=== PATIENT | female | born 1970 | race African-American/Black ===

== ENCOUNTER 2018-05-04 22:29 | Emergency (ER) | payer SELFPAY ==
[~2018-05-04] VITALS: Ht 167.6 cm; Wt 70.0 kg
[2018-05-04 23:09] VITALS: BP 168/94; PULSE 85; RESP 18; TEMP 98.8; O2SAT 98
[2018-05-04] MEDS ORDERED: SODIUM CHLOR 0.9% 1000 ML INJ 1,000 ML IV SCH (23:44)
[2018-05-04] MEDS ORDERED: KETOROLAC TROMETHAMINE 30 MG/ML (IVP) VIAL IVP ONE (23:45)
[2018-05-04] MEDS ORDERED: ONDANSETRON ODT 4 MG TAB PO ONE (23:45)
[2018-05-04] MEDS ORDERED: MORPHINE SULFATE 4 MG/ML INJ IV PUSH ONE (23:45)
[2018-05-04] MEDS ORDERED: SODIUM CHLORIDE 0.9% FLUSH 10 ML FLUSH IV FLUSH PRN (23:45)
[2018-05-04] MEDS ORDERED: DIATRIZOATE MEGLUM/DIATRIZOATE SOD 9 ML CUP ONE ×2 (23:47→23:59)
--- NOTE | 2018-05-04 23:51 | PD ---
HPI Chief Complaint: Abdominal Pain Time Seen by Provider: 23:15 Travel History International Travel<30 days: No Contact w/Intl Traveler<30days: No Traveled to known affect area: No History of Present Illness HPI The patient is a 48-year-old female who presents emergency department for abdominal pain. The patient's abdominal pain started on Thursday and is progressively worsening. The patient's abdominal pain is located right lower quadrant, constant, nonradiating, dull and achy, and associated with mild nausea without any vomiting or constipation. Last bowel movement was earlier today, slightly hard from straining. The patient does note mild burning upon urination when wiping, but denies any vaginal discharge or bleeding. The patient denies any fever, chills, or sweats. She was able to eat earlier today, but does note decreased oral intake over the last several days. She denies any history of abdominal surgeries. Last menstrual cycle was April 26, 2018. She denies . Symptoms are moderate. [facility] Past Medical History Medical History: Denies Significant Hx ?: Unknown Past Surgical History Surgical History: No Previous Surgery Social History Tobacco Use: No Allergies-Medications (Allergen,Severity, Reaction): Coded Allergies: No Known Allergies (Unverified , 05/04/18) Review of Systems Except as stated in HPI: all other systems reviewed are Neg General / Constitutional: No: Fever Cardiovascular: No: Chest Pain or Discomfort Respiratory: No: Shortness of Breath Gastrointestinal: Positive: Nausea, Abdominal Pain, No: Vomiting, Diarrhea Genitourinary: Positive: Dysuria, No: Discharge, Vaginal Bleeding Physical Exam Narrative GENERAL: Awake, alert, pleasant 48-year-old female who appears her stated age and is in no acute respiratory distress. SKIN: Focused skin assessment warm/dry. HEAD: Atraumatic. Normocephalic. Apparent hairpiece in place. EYES: Pupils equal and round. No scleral icterus. No injection or drainage. ENT: No nasal bleeding or discharge. Mucous membranes pink and moist. NECK: Trachea midline. No JVD. CARDIOVASCULAR: Regular rate and rhythm. No murmur appreciated. RESPIRATORY: No accessory muscle use. Clear to auscultation. Breath sounds equal bilaterally. GASTROINTESTINAL: Abdomen soft, tender to palpation right lower quadrant. Negative Almonte's. Positive McBurney's. Positive obturator. No guarding or rigidity. MUSCULOSKELETAL: No obvious deformities. No clubbing. No cyanosis. No edema. NEUROLOGICAL: Awake and alert. No obvious cranial nerve deficits. Motor grossly within normal limits. Normal speech. PSYCHIATRIC: Appropriate mood and affect; insight and judgment normal. Data Data Last Documented VS Vital Signs Date Time Temp Pulse Resp B/P (MAP) Pulse Ox O2 Delivery O2 Flow Rate FiO2 05/05/18 00:20 Room Air 05/04/18 23:09 98.8 85 18 168/94 (118) 98 Orders Orders Complete Blood Count With Diff (05/04/18 23:44) Comprehensive Metabolic Panel (05/04/18 23:44) Lipase (05/04/18 23:44) Urinalysis - C+S If Indicated (05/04/18 23:44) Iv Access Insert/Monitor (05/04/18 23:44) Ecg Monitoring (05/04/18 23:44) Oximetry (05/04/18 23:44) Morphine Inj (Morphine Inj) (05/04/18 23:45) Sodium Chlor 0.9% 1000 Ml Inj (Ns 1000 M (05/04/18 23:44) Sodium Chloride 0.9% Flush (Ns Flush) (05/04/18 23:45) Ketorolac Inj (Toradol Inj) (05/04/18 23:45) Ed Urine Pregnancytest Poc (05/04/18 23:44) Ondansetron Odt (Zofran Odt) (05/04/18 23:45) Diatrizoate Liq ( Gastroyanni Liq) (05/04/18 23:47) Oral Contrast - Adult (05/04/18 23:51) Ct Abd/Pel W Iv Contrast(Rout) (05/05/18 23:44) Diatrizoate Liq ( Gastroyanni Liq) (05/04/18 23:59) Urine Culture (05/05/18 00:20) Ceftriaxone Inj (Rocephin Inj) (05/05/18 01:30) Iohexol 350 Inj (Omnipaque 350 Inj) (05/05/18 02:15) Us Pelvis Comp W Dop Transvag (05/05/18 ) Ed Discharge Order (05/05/18 04:53) Labs Laboratory Tests Test 6/6/18 00:14 05/05/18 00:20 White Blood Count 8.7 TH/MM3 Red Blood Count 3.90 MIL/MM3 Hemoglobin 12.1 GM/DL Hematocrit 34.6 % Mean Corpuscular Volume 88.7 FL Mean Corpuscular Hemoglobin 30.9 PG Mean Corpuscular Hemoglobin Concent 34.9 % Red Cell Distribution Width 16.0 % Platelet Count 218 TH/MM3 Mean Platelet Volume 9.9 FL Neutrophils (%) (Auto) 64.1 % Lymphocytes (%) (Auto) 24.2 % Monocytes (%) (Auto) 9.6 % Eosinophils (%) (Auto) 1.7 % Basophils (%) (Auto) 0.4 % Neutrophils # (Auto) 5.6 TH/MM3 Lymphocytes # (Auto) 2.1 TH/MM3 Monocytes # (Auto) 0.8 TH/MM3 Eosinophils # (Auto) 0.1 TH/MM3 Basophils # (Auto) 0.0 TH/MM3 CBC Comment DIFF FINAL Differential Comment Blood Urea Nitrogen 18 MG/DL Creatinine 1.09 MG/DL Random Glucose 97 MG/DL Total Protein 7.1 GM/DL Albumin 3.2 GM/DL Calcium Level 9.3 MG/DL Alkaline Phosphatase 64 U/L Aspartate Amino Transf (AST/SGOT) 11 U/L Alanine Aminotransferase (ALT/SGPT) 18 U/L Total Bilirubin 0.8 MG/DL Sodium Level 140 MEQ/L Potassium Level 3.7 MEQ/L Chloride Level 108 MEQ/L Carbon Dioxide Level 23.7 MEQ/L Anion Gap 8 MEQ/L Estimat Glomerular Filtration Rate 65 ML/MIN Lipase 132 U/L Urine Color YELLOW Urine Turbidity CLEAR Urine pH 6.5 Urine Specific [place] 1.023 Urine Protein NEG mg/dL Urine Glucose (UA) NEG mg/dL Urine Ketones NEG mg/dL Urine Occult Blood NEG Urine Nitrite NEG Urine Bilirubin NEG Urine Urobilinogen LESS THAN 2.0 MG/DL Urine Leukocyte Esterase MOD Urine RBC 1 /hpf Urine WBC 14 /hpf Urine Squamous Epithelial Cells 3 /hpf Urine Bacteria RARE /hpf Urine Mucus FEW /lpf Microscopic Urinalysis Comment CULTURE INDICATED MDM Medical Decision Making Medical Screen Exam Complete: Yes Emergency Medical Condition: Yes Medical Record Reviewed: Yes Interpretation(s) Last Impressions Abdomen/Pelvis CT 05/05/18 1664 Signed Impressions: CONCLUSION: 1. 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 2. Right adnexal mass measuring approximately 5 cm. This may be a pedunculated uterine fibroid versus ovarian mass. On a nonemergent outpatient basis, recomm end a dedicated transabdominal and transvaginal ultrasound. 3. No acute pathology. Abdomen/Pelvis/Transvag US 05/05/18 0000 Signed Impressions: CONCLUSION: 1. 4.8 cm pedunculated right uterine fibroid 2. Small complex left ovarian cyst measuring 8 mm. Laboratory Tests Test 05/05/18 00:14 05/05/18 00:20 White Blood Count 8.7 TH/MM3 Red Blood Count 3.90 MIL/MM3 Hemoglobin 12.1 GM/DL Hematocrit 34.6 % Mean Corpuscular Volume 88.7 FL Mean Corpuscular Hemoglobin 30.9 PG Mean Corpuscular Hemoglobin Concent 34.9 % Red Cell Distribution Width 16.0 % Platelet Count 218 TH/MM3 Mean Platelet Volume 9.9 FL Neutrophils (%) (Auto) 64.1 % Lymphocytes (%) (Auto) 24.2 % Monocytes (%) (Auto) 9.6 % Eosinophils (%) (Auto) 1.7 % Basophils (%) (Auto) 0.4 % Neutrophils # (Auto) 5.6 TH/MM3 Lymphocytes # (Auto) 2.1 TH/MM3 Monocytes # (Auto) 0.8 TH/MM3 Eosinophils # (Auto) 0.1 TH/MM3 Basophils # (Auto) 0.0 TH/MM3 CBC Comment DIFF FINAL Differential Comment Blood Urea Nitrogen 18 MG/DL Creatinine 1.09 MG/DL Random Glucose 97 MG/DL Total Protein 7.1 GM/DL Albumin 3.2 GM/DL Calcium Level 9.3 MG/DL Alkaline Phosphatase 64 U/L Aspartate Amino Transf (AST/SGOT) 11 U/L Alanine Aminotransferase (ALT/SGPT) 18 U/L Total Bilirubin 0.8 MG/DL Sodium Level 140 MEQ/L Potassium Level 3.7 MEQ/L Chloride Level 108 MEQ/L Carbon Dioxide Level 23.7 MEQ/L Anion Gap 8 MEQ/L Estimat Glomerular Filtration Rate 65 ML/MIN Lipase 132 U/L Urine Color YELLOW Urine Turbidity CLEAR Urine pH 6.5 Urine Specific [place] 1.023 Urine Protein NEG mg/dL Urine Glucose (UA) NEG mg/dL Urine Ketones NEG mg/dL Urine Occult Blood NEG Urine Nitrite NEG Urine Bilirubin NEG Urine Urobilinogen LESS THAN 2.0 MG/DL Urine Leukocyte Esterase MOD Urine RBC 1 /hpf Urine WBC 14 /hpf Urine Squamous Epithelial Cells 3 /hpf Urine Bacteria RARE /hpf Urine Mucus FEW /lpf Microscopic Urinalysis Comment CULTURE INDICATED Differential Diagnosis Differential diagnosis includes appendicitis, mesenteric lymphadenitis, pyelonephritis, UTI, ovarian torsion, ovarian cyst, PID, cervicitis, ectopic , constipation. Narrative Course IV was established, labs are drawn and sent, and the patient was placed on cardiac telemetry monitoring and continuous pulse oximetry monitoring. The patient was administered morphine, Toradol, Zofran, and IV fluids. Bedside UA test was obtained and UA was sent to lab. CT of the abdomen and pelvis with IV and oral contrast was ordered to evaluate for appendicitis. The patient's white count is unremarkable. The patient's UA is positive with 14 WBCs, therefore, the patient was administered Rocephin [address] of the abdomen and pelvis does reveal a right ovarian mass, no evidence of appendicitis. Therefore, ultrasound was ordered to rule out ovarian mass with torsion as the patient is having increasing pain in the right lower quadrant. Ultrasound reveals a uterine fibroid and a left ovarian cyst, no evidence of torsion. The patient was reassessed at 4:50 AM, was sleeping comfortably. The patient has abdominal pain, uterine fibroid, and UTI. She will be discharged home in antibiotics and pain medications. She will be provided a copy of her CT results, ultrasound results, and lab results at discharge. She is advised to follow-up with a primary physician. Return if symptoms worsen or progress. Diagnosis Primary Impression: Abdominal pain Qualified Codes: R10.31 - Right lower quadrant pain Additional Impressions: UTI (urinary tract infection) Qualified Codes: N30.00 - Acute cystitis without hematuria Uterine fibroid Qualified Codes: D25.9 - Leiomyoma of uterus, unspecified Patient Instructions: General Instructions, Narcotic given in the ED Additional Instructions: Please provide the patient a copy of her lab results, ultrasound results, and CT results at discharge. Medications as directed. Follow-up with her primary physician. Return if symptoms worsen or progress. Med/Other Pt SpecificInfo: Prescription(s) given Scripts Hydrocodone-Acetaminophen ([place]) 5 Mg-325 Mg Tab 1 TAB PO Q6H Y for PAIN, #12 TAB 0 Refills Prov: David Campbell MD 05/05/18 Sulfamethoxazole-Trimethoprim (Bactrim DS) 800-160 Mg Tab 1 TAB PO BID for Infection, #14 TAB 0 Refills Prov: David Campbell MD 05/05/18 Disposition: 01 DISCHARGE HOME Condition: Stable David Campbell MD May 04, 2018 23:51
[2018-05-05 00:39] LABS: AUTOMATED NEUTROPHIL # 5.6 TH/MM3 (1.8-7.7); BASOPHIL % 0.4 % (0.0-2.0); EOSINOPHIL # 0.1 TH/MM3 (0-0.4); EOSINOPHIL % 1.7 % (0.0-4.0); HEMATOCRIT 34.6 % (35.0-46.0); HEMOGLOBIN 12.1 GM/DL (11.6-15.3); LYMPH % 24.2 % (9.0-44.0); LYMPHOCYTE # 2.1 TH/MM3 (1.0-4.8); MEAN CELL VOLUME 88.7 FL (80.0-100.0); MEAN CORPUSCULAR HEMOGLOBIN 30.9 PG (27.0-34.0); MEAN CORPUSCULAR HGB CONC 34.9 % (32.0-36.0); MEAN PLATELET VOLUME 9.9 FL (7.0-11.0); MONO % 9.6 % (0.0-8.0); MONOCYTE # 0.8 TH/MM3 (0-0.9); NEUT % 64.1 % (16.0-70.0); PLATELET COUNT 218 TH/MM3 (150-450); WHITE BLOOD COUNT 8.7 TH/MM3 (4.0-11.0)
[2018-05-05 00:57] LABS: ALBUMIN 3.2 GM/DL (3.4-5.0); AST (GOT) 11 U/L (15-37); BICARBONATE 23.7 MEQ/L (21.0-32.0); BLOOD UREA NITROGEN 18 MG/DL (7-18); CALCIUM 9.3 MG/DL (8.5-10.1); CHLORIDE 108 MEQ/L (98-107); CREATININE 1.09 MG/DL (0.50-1.00); GLOMERULAR FILTRATION RATE 65 ML/MIN (>89); GLUCOSE,RANDOM 97 MG/DL (74-106); SODIUM (NA) 140 MEQ/L (136-145)
[2018-05-05 00:58] LABS: ALT (GPT) 18 U/L (10-53)
[2018-05-05 01:00] LABS: ALKALINE PHOSPHATASE 64 U/L (45-117); TOTAL BILIRUBIN ADULT 0.8 MG/DL (0.2-1.0); TOTAL PROTEIN 7.1 GM/DL (6.4-8.2)
[2018-05-05 01:10] LABS: BACTERIA, URINE RARE /hpf; BILIRUBIN, URINE NEG (NEG); BLOOD, URINE NEG (NEG); GLUCOSE,URINE NEG (NEG); KETONE, URINE NEG (NEG); MUCUS URINE FEW /lpf (OCC); NITRITE,URINE NEG (NEG); PH, URINE 6.5 (5.0-8.5); SQUAMOUS EPITHELIAL CELL URINE 3 /hpf (0-5); URINE COLOR YELLOW (YELLW/STRAW); URINE LEUKOCYTE ESTERASE MOD (NEG)
[2018-05-05] MEDS ORDERED: cefTRIAXone INJ 1,000 MG in SODIUM CHLORIDE 0.9% INJ 100 ML IV ONE (01:30)
[2018-05-05] MEDS ORDERED: IOHEXOL 350 MG/ML 10 ML VIAL (for RAD DIAG) IVCONTRAST ONE (02:15)
--- NOTE | 2018-05-05 02:23 | RADRPT ---
EXAM DATE: 05/05/2018 2:15 AM EDT AGE/SEX: 48 years / Female INDICATIONS: Right lower quadrant pain. CLINICAL DATA: This is the patient's initial encounter. Patient reports that signs and symptoms have been present for 3 days and indicates a pain score of 9/10. MEDICAL/SURGICAL HISTORY: None. None. ORAL CONTRAST: Prescribed oral contrast ingested. RADIATION DOSE: 6.64 CTDI (mGy) COMPARISON: No prior [facility] exams available for comparison. TECHNIQUE: Multiple contiguous axial images were obtained through the abdomen and pelvis following b olus infusion of 75 ml Omnipaque 350 (iohexol) nonionic water-soluble contrast as a single exam dos e. Prescribed oral contrast ingested. Using automated exposure control and adjustment of the mA and/ or kV according to patient size, the radiation dose was kept as low as reasonably achievable to obtai n optimal diagnostic quality images. FINDINGS: Lower Lungs: The visualized lower lungs are clear. Liver: The liver has a homogeneous density without space-occupying lesion. There is no dilation of th e biliary tree. 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 Spleen: Homogeneous density without enlargement. Pancreas: Unremarkable without mass or calcification. Kidneys: Normal in size and shape. No evidence of mass or hydronephrosis. Adrenal Glands: Unremarkable. Aorta: The aorta and proximal iliac vessels are grossly unremarkable without aneurysmal dilation. Bowel/Mesentery: The bowel loops are grossly unremarkable. The cecum and sigmoid colon have a normal configuration. The appendix is unremarkable. No inflammatory changes. There is stool in the colon. Abdominal Wall: Intact. Retroperitoneum: No evidence of adenopathy in the retrocrural, para-aortic, or deep pelvic regions. Bladder: Contours are smooth. Reproductive Organs: The uterus appears to be prominent. There is a 5 cm right adnexal mass. No sign ificant free fluid in the pelvis. Inguinal: The inguinal region is unremarkable without evidence of adenopathy. Bony Structures: Mild degenerative changes. CONCLUSION: 1. 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 2. Right adnexal mass measuring approximately 5 cm. This may be a pedunculated uterine fibroid versu s ovarian mass. On a nonemergent outpatient basis, recommend a dedicated transabdominal and transvagi nal ultrasound. 3. No acute pathology. Electronically signed by: Иван Good MD 05/05/2018 2:22 AM EDT
--- NOTE | 2018-05-05 04:38 | RADRPT ---
EXAM DATE: 05/05/2018 4:16 AM EDT AGE/SEX: 48 years / Female INDICATIONS: Right adnexal mass seen on CT. CLINICAL DATA: This is the patient's subsequent encounter. Patient reports that signs and symptoms h ave been present for 4 - 6 days and indicates a pain score of 4/10. MEDICAL/SURGICAL HISTORY: None. . Tubal ligation. COMPARISON: [facility], CT ABDOMEN & PELVIS W CONTRAST, 05/05/2018. . No external comparison. MEASUREMENTS: Uterus:__10.2 x 5.5 x 6.2 Endometrial Stripe:__6 mm Right Ovary:__ 3.0 x 1.4 x 1.8 Left Ovary:__ 3.7 x 2.0 x FINDINGS: Uterus: The uterus is mildly prominent size. The endometrial cavity is empty. There is a pedunculate d mass along the right fundus measuring 4.8 x 4.8 cm. This correlates with the recent CT scan. No enc roachment on the endometrial cavity. Right Ovary: The right ovary is unremarkable. Left Ovary: Small complex cyst associated with the left ovary measuring 8 mm. Other: No free fluid. CONCLUSION: 1. 4.8 cm pedunculated right uterine fibroid 2. Small complex left ovarian cyst measuring 8 mm. Electronically signed by: Иван Good MD 05/05/2018 4:36 AM EDT
[2018-05-05] MEDS ORDERED: NORC5TAB PO (04:55)
[2018-05-05] MEDS ORDERED: BACT800T5 PO (04:55)
== END 2018-05-05 05:10 | disposition home or self-care (01) ==
LOC: NEPE 22:29
DX: R10.31 Right lower quadrant pain (principal); N30.00 Acute cystitis without hematuria; D25.9 Leiomyoma of uterus, unspecified; K80.20 Calculus of gallbladder without cholecystitis without obstruction; N83.202 Unspecified ovarian cyst, left side
CPT/HCPCS: 74177; 76830; 76856; 80053; 81001; 83690; 84703; 85025; 87086; 93975; 96361; 96365; 96375; 99285; J0696; J1885; J2270; J7030; Q9963; Q9967